=== PATIENT | female | born 1990 | race Caucasian/White ===

== ENCOUNTER 2016-08-13 16:49 | Observation (INO) | payer MEDICAID ==
[~2016-08-13 16:49] MED LIST: COLACE100 M1 PO; IBUPROFEN800 M1 PO; NORCO 5-325 TA1 EACH PO; PERCOCET 5-3251 EACH PO; PRENATAL VITAM1 EAC5 PO; SENOKOT-S TABL1 EACH PO; TRIPNIP TOP; ZOFRAN ODT4 MG PO
[2016-08-13] MEDS ORDERED: ZYRTEC10 M7 PO (17:43)
[2016-08-13 18:15] LABS: BASO % 0.3 % (0-2); EOS % 0.7 % (0-7); EOSINOPHIL ABSOLUTE COUNT 0.1 tho/cmm (0.0-0.7); HCT-HEMATOCRIT 36.7 % (34.0-49.0); HGB-HEMOGLOBIN 12.5 gm/dl (12.0-15.5); IMMATURE GRANULOCYTES ABSOLUTE 0.06 tho/cmm (0-0.03); IMMATURE GRANULOCYTES PERCENT 0.4 % (0-0.3); LYMPH % 17.9 % (20-45); LYMPH ABSOLUTE COUNT 2.8 tho/cmm (0.8-4.5); MCHC MEAN CORPUSCULAR HGB CONC 34.1 % (32.0-36.0); MCV (MEAN CELL VOLUME) 85.2 fl (82.0-96.0); MEAN PLATELET VOLUME 9.9 cmc (9.4-12.4); MONO % 5.9 % (0-12); MONOCYTE ABSOLUTE COUNT 0.9 tho/cmm (0.0-1.2); NEUTROPHIL ABSOLUTE COUNT 11.6 tho/cmm (1.6-8.0); NEUTROPHIL-AUTOMATED 11.6 tho/cmm (1.6-8.0); NEUTROPHILS % 74.8 % (40-80); PLATELET COUNT 272 tho/cmm (150-450); RED BLOOD COUNT 4.31 mil/cmm (4.00-5.20); RED CELL DISTRIBUTION WIDTH 13.7 % (12.4-16.4); WHITE BLOOD COUNT 15.5 tho/cmm (4.0-10.0)
[2016-08-13 18:31] LABS: ALB/GLOB RATIO 0.6 (0.8-2.0); ALKALINE PHOSPHATASE 108 U/L (33-138); ALT/SGPT 17 U/L (12-78); ANION GAP 14 mmol/L (0-20); AST/SGOT 8 U/L (10-40); BILIRUBIN,TOTAL 0.3 mg/dl (0-1.5); BLOOD UREA NITROGEN 4 mg/dl (6-24); CALCIUM 9.1 mg/dl (8.5-10.5); CARBON DIOXIDE-VENOUS 22 mmol/L (22-32); CHLORIDE 107 mmol/l (96-110); CREATININE 0.51 mg/dl (0.50-1.10); GLUCOSE 84 mg/dL (70-110); POTASSIUM 3.8 mmol/L (3.7-5.1); SODIUM 139 mmol/L (135-145); eGFR VALUE FOR BLACK >90 mL/Min
[2016-08-13 19:15] LABS: URINE PRT/CR RATIO 0.1 Ratio (0.0-0.20); URINE TOTAL PROTEIN-RANDOM 24.4 mg/dl (<11.8)
[2016-09-27] MEDS ORDERED: TYLENOL EXTRA500 M1 PO (16:26)
== END 2016-08-13 19:43 ==
LOC: LDR 16:49
PROVIDERS: ADMIT Advanced Practice Midwife
DX: O09.893 Supervision of other high risk pregnancies, third trimester (principal); Z3A.30 30 weeks gestation of pregnancy; Z91.018 Allergy to other foods

== ENCOUNTER 2016-10-09 09:52 | Inpatient (IN) | payer MEDICAID ==
[~2016-10-09 09:52] MED LIST changes: +TYLENOL EXTRA500 M1 PO; +ZYRTEC10 M7 PO
[2016-10-09 11:09] LABS: BASO % 0.4 % (0-2); EOS % 1.1 % (0-7); EOSINOPHIL ABSOLUTE COUNT 0.1 tho/cmm (0.0-0.7); HCT-HEMATOCRIT 33.7 % (34.0-49.0); HGB-HEMOGLOBIN 11.3 gm/dl (12.0-15.5); IMMATURE GRANULOCYTES ABSOLUTE 0.03 tho/cmm (0-0.03); IMMATURE GRANULOCYTES PERCENT 0.3 % (0-0.3); LYMPH % 26.6 % (20-45); LYMPH ABSOLUTE COUNT 2.7 tho/cmm (0.8-4.5); MCH (MEAN CORPUSCULAR HGB) 28.3 pg (28.0-32.0); MCHC MEAN CORPUSCULAR HGB CONC 33.5 % (32.0-36.0); MCV (MEAN CELL VOLUME) 84.3 fl (82.0-96.0); MEAN PLATELET VOLUME 10.2 cmc (9.4-12.4); MONO % 6.4 % (0-12); MONOCYTE ABSOLUTE COUNT 0.7 tho/cmm (0.0-1.2); NEUTROPHIL ABSOLUTE COUNT 6.7 tho/cmm (1.6-8.0); NEUTROPHIL-AUTOMATED 6.7 tho/cmm (1.6-8.0); NEUTROPHILS % 65.2 % (40-80); PLATELET COUNT 218 tho/cmm (150-450); RED CELL DISTRIBUTION WIDTH 14.4 % (12.4-16.4); WHITE BLOOD COUNT 10.3 tho/cmm (4.0-10.0)
[2016-10-12] MEDS ORDERED: IBUPROFEN800 M1 PO (01:47)
[2016-10-12] MEDS ORDERED: PERCOCET 5-3251 EACH PO (01:48)
[2016-10-13] MEDS ORDERED: COLACE100 M1 PO (10:43)
== END 2016-10-13 20:15 | DRG 765 ==
LOC: LDR 09:52 → OBGE 13:30
PROVIDERS: ADMIT Advanced Practice Midwife
PROC: 10D00Z1 Extraction of Products of Conception, Low, Open Approach (ICD-10-PCS; principal; 2016-10-09)
DX: O34.211 Maternal care for low transverse scar from previous cesarean delivery (principal); O16.3 Unspecified maternal hypertension, third trimester; Z68.43 Body mass index [BMI] 50.0-59.9, adult; O99.213 Obesity complicating pregnancy, third trimester; E66.9 Obesity, unspecified; Z3A.38 38 weeks gestation of pregnancy; O69.2XX0 Labor and delivery complicated by other cord entanglement, with compression, not applicable or unspecified; Z37.0 Single live birth
CPT/HCPCS: J0690; J2590; J2791; J7121